=== PATIENT | female | born 1985 | race Native Hawaiian/Other Pacific Islander ===

== ENCOUNTER 2017-08-07 18:25 | Emergency (ER) | payer BC ==
[~2017-08-07] VITALS: Ht 167.6 cm; Wt 83.9 kg
[2017-08-07 20:29] LABS: PLATELET COUNT 293 K/uL (152-353); POTASSIUM 3.7 mmol/L (3.6-5.2); SODIUM 138 mmol/L (136-145)
[2017-08-07 21:58] VITALS: BP 104/67; TEMP 98.8
== END 2017-08-07 21:59 | disposition home or self-care (01) ==
LOC: ED 18:25
PROVIDERS: Specialist
DX: M54.5 Low back pain (principal); M79.651 Pain in right thigh
CPT/HCPCS: 36415; 80048; 81000; 85027; 96374; 96375; 99283; J1885; J2360

== ENCOUNTER 2017-11-18 10:13 | Outpatient (CLI) | payer BC | END 2017-11-18 23:00 | disposition home or self-care (01) | LOC: RAD 10:13 | DX: R06.02 Shortness of breath (principal) ==

== ENCOUNTER 2018-09-13 21:21 | Emergency (ER) | payer OTHER ==
[~2018-09-13] VITALS: Ht 167.6 cm; Wt 97.5 kg
[2018-09-13 22:28] VITALS: BP 160/90; TEMP 98.9
== END 2018-09-13 22:29 | disposition home or self-care (01) ==
LOC: ED 21:21
DX: N30.80 Other cystitis without hematuria (principal)
CPT/HCPCS: 81000; 87088; 99282

== ENCOUNTER 2018-11-14 11:22 | Emergency (ER) | payer OTHER ==
[~2018-11-14] VITALS: Ht 167.6 cm; Wt 97.5 kg
[2018-11-14 12:25] LABS: PLATELET COUNT 321 K/uL (152-353)
[2018-11-14 12:44] LABS: SODIUM 136 mmol/L (136-145)
[2018-11-14 14:45] VITALS: BP 121/73; TEMP 97.8
== END 2018-11-14 14:45 | disposition home or self-care (01) ==
LOC: ED 11:22
PROVIDERS: Family Medicine
DX: R07.89 Other chest pain (principal); K29.60 Other gastritis without bleeding
CPT/HCPCS: 36415; 80053; 81000; 82550; 84484; 85027; 93005; 99284

== ENCOUNTER 2019-10-04 12:13 | Outpatient (CLI) | payer OTHER | END 2019-10-04 19:45 | disposition home or self-care (01) | LOC: RAD 12:13 | DX: R05 Cough (principal) ==

== ENCOUNTER 2020-08-06 15:46 | Emergency (ER) | payer OTHER ==
[~2020-08-06] VITALS: Ht 167.6 cm; Wt 97.5 kg
[2020-08-06 15:56] VITALS: BP 162/91; TEMP 97.7
== END 2020-08-06 16:43 | disposition home or self-care (01) ==
LOC: ED 15:46
DX: L23.9 Allergic contact dermatitis, unspecified cause (principal)
CPT/HCPCS: 96372; 99282; J1020

== ENCOUNTER 2020-12-02 09:05 | Emergency (ER) | payer OTHER ==
[~2020-12-02] VITALS: Ht 167.6 cm; Wt 97.5 kg
[2020-12-02 11:22] VITALS: BP 138/93; TEMP 97.6
== END 2020-12-02 11:22 | disposition home or self-care (01) ==
LOC: ED 09:05
DX: R22.2 Localized swelling, mass and lump, trunk (principal)
CPT/HCPCS: 99282

== ENCOUNTER 2020-12-02 14:19 | Outpatient (CLI) | payer OTHER | END 2020-12-02 19:27 | disposition home or self-care (01) | LOC: US 14:19 | PROVIDERS: ATTEND Nurse Practitioner Family | DX: R22.31 Localized swelling, mass and lump, right upper limb (principal) ==

== ENCOUNTER 2020-12-25 09:02 | Outpatient (CLI) | payer OTHER | END 2020-12-25 19:23 | disposition home or self-care (01) | LOC: MAMMO 09:02 | PROVIDERS: ATTEND Student in an Organized Health Care Education/Training Program | DX: N63.20 Unspecified lump in the left breast, unspecified quadrant (principal) | CPT/HCPCS: G0279 ==

== ENCOUNTER 2021-01-27 14:45 | Outpatient (CLI) | payer OTHER | END 2021-01-27 22:25 | disposition home or self-care (01) | LOC: RAD 14:45 | PROVIDERS: ATTEND Nurse Practitioner Family | DX: M54.2 Cervicalgia (principal) ==

== ENCOUNTER 2021-03-08 13:27 | Emergency (ER) | payer OTHER ==
[~2021-03-08] VITALS: Ht 167.6 cm; Wt 102.1 kg
[2021-03-08 13:47] VITALS: TEMP 97.6
[2021-03-08 14:37] LABS: PLATELET COUNT 285 K/uL (152-353)
[2021-03-08 14:46] LABS: POTASSIUM 3.7 mmol/L (3.6-5.2)
[2021-03-08 15:00] VITALS: BP 128/88
== END 2021-03-08 15:20 | disposition home or self-care (01) ==
LOC: ED 13:27
PROVIDERS: Hospitalist
DX: K22.4 Dyskinesia of esophagus (principal)
CPT/HCPCS: 36415; 80053; 83690; 85027; 96374; 96375; 99284; J1610; J2405

== ENCOUNTER 2021-06-09 08:56 | Outpatient (CLI) | payer OTHER | END 2021-06-09 19:34 | disposition home or self-care (01) | LOC: MAMMO 08:56 | PROVIDERS: ATTEND Nurse Practitioner Family | DX: R92.8 Other abnormal and inconclusive findings on diagnostic imaging of breast (principal) | CPT/HCPCS: G0279 ==

== ENCOUNTER 2022-05-17 08:02 | Emergency (ER) | payer BC ==
[~2022-05-17] VITALS: Ht 167.6 cm; Wt 96.6 kg
[2022-05-17 08:02] VITALS: TEMP 98
[2022-05-17 08:52] LABS: PLATELET COUNT 328 K/uL (152-353)
[2022-05-17 09:00] LABS: POTASSIUM 4.4 mmol/L (3.6-5.2); SODIUM 138 mmol/L (136-145)
[2022-05-17 10:20] VITALS: BP 118/82
== END 2022-05-17 10:20 | disposition home or self-care (01) ==
LOC: ED 08:02
PROVIDERS: Emergency Medicine Emergency Medical Services
DX: R09.1 Pleurisy (principal); J20.9 Acute bronchitis, unspecified; Z20.822 Contact with and (suspected) exposure to COVID-19
CPT/HCPCS: 36415; 80053; 81002; 84484; 85027; 85379; 85610; 87502; 87635; 93005; 96360; 96374; 99284; J3490; U0003

== ENCOUNTER 2022-05-25 15:39 | Outpatient (CLI) | payer BC | END 2022-05-25 19:26 | disposition home or self-care (01) | LOC: RAD 15:39 | PROVIDERS: ATTEND Nurse Practitioner Family | DX: R05.1 Acute cough (principal); R06.02 Shortness of breath ==

== ENCOUNTER 2023-09-26 16:19 | Outpatient (CLI) | payer OTHER | END 2023-09-26 19:50 | disposition home or self-care (01) | LOC: US 16:19 | PROVIDERS: ATTEND Nurse Practitioner Family | DX: M25.562 Pain in left knee (principal) ==